=== PATIENT | female | born 1985 | race Caucasian/White ===

== ENCOUNTER 2017-08-05 15:44 | Inpatient (IN) | payer BC ==
[~2017-08-05] VITALS: Ht 157.5 cm; Wt 84.1 kg
[~2017-08-05 15:44] MED LIST: BIRTH CONTROL PILL; MOTRIN 600600 MG/TAB PO; NO HOME MEDICATIONS; NORCO 325 MG-51 TAB PO
[2017-09-26 21:43] VITALS: BP 100/57; PULSE 69; TEMP 97.8
[2017-09-26] MEDS ORDERED: PRENATAL MVI (21:49)
[2017-09-26 22:45] VITALS: BP 119/72; PULSE 73
[2017-09-26 23:00] VITALS: BP 129/62; PULSE 65
[2017-09-26 23:15] VITALS: BP 124/77; PULSE 76
[2017-09-26 23:18] LABS: BASO % 0.3 % (0.0-2.0); EOS % 0.4 % (0-4.0); GRAN # 7.2 (1.4-6.5); GRAN % 67.6 % (42.2-75.2); HEMATOCRIT 36.9 % (37.0-47.0); HEMOGLOBIN 12.9 g/dl (12.5-16.0); LYMPH # 2.5 (1.2-3.4); LYMPH % 23.6 % (20.0-51.0); MEAN CELL VOLUME 86 fl (80.0-100.0); MEAN CORPUSCULAR HEMOGLOBIN 30 pg (27.0-31.0); MEAN CORPUSCULAR HGB CONC 35 g/dl (33.0-37.0); MEAN PLATELET VOLUME 12.4 fl (7.4-10.4); MONO # 0.8 (0.1-0.6); MONO % 7.8 % (1.7-9.3); PLATELET COUNT 158 K/mm3 (130-400); RED BLOOD COUNT 4.27 M/mm3 (4.10-5.30); WHITE BLOOD COUNT 10.6 K/mm3 (4.8-10.8)
[2017-09-26 23:25] VITALS: BP 138/94; PULSE 91
[2017-09-26 23:45] VITALS: BP 107/58; PULSE 64
[2017-09-27] VITALS (24 sets, daily range): BP systolic 87–148; BP diastolic 51–79; PULSE 55–98; TEMP 97.4–98.6
[2017-09-28 06:56] LABS: HEMATOCRIT 33.5 % (37.0-47.0); HEMOGLOBIN 11.5 g/dl (12.5-16.0)
[2017-09-28 07:38] VITALS: BP 121/81; PULSE 72
[2017-09-28] MEDS ORDERED: IBU600 MG PO (09:18)
== END 2017-09-28 11:10 | disposition home or self-care (01) | DRG 775 ==
LOC: OB 09-26 21:35 → LDR 09-26 21:35 → OB 09-27 05:45 → LDR 09-27 12:30 → OB 09-28 11:10 → EDSTATUS 10-04 12:29 → LDRO 10-04 15:44
PROVIDERS: Obstetrics & Gynecology
PROC: 10E0XZZ Delivery of Products of Conception, External Approach (ICD-10-PCS; principal; 2017-09-27)
PROC: 0HQ9XZZ Repair Perineum Skin, External Approach (ICD-10-PCS; 2017-09-27)
DX: O70.0 First degree perineal laceration during delivery (principal); Z3A.39 39 weeks gestation of pregnancy; Z37.0 Single live birth
CPT/HCPCS: J2590; J7120

== ENCOUNTER 2021-01-13 07:04 | Inpatient (IN) | payer BC ==
[2021-01-13] VITALS (36 sets, daily range): BP systolic 90–1410; BP diastolic 50–90; PULSE 59–109; TEMP 97.8–98.7
[~2021-01-13] VITALS: Ht 157.5 cm; Wt 84.5 kg
[~2021-01-13 07:04] MED LIST changes: +IBU600 MG PO; +PRENATAL MVI
[2021-01-13 10:51] LABS: BASO % 0.4 % (0.0-2.0); EOS # 0.1 (0.0-0.7); EOS % 0.6 % (0-4.0); GRAN # 7.7 (1.4-6.5); GRAN % 72.7 % (42.2-75.2); HEMOGLOBIN 12.2 g/dl (12.5-16.0); LYMPH % 19.2 % (20.0-51.0); MEAN CELL VOLUME 86 fl (80.0-100.0); MEAN CORPUSCULAR HEMOGLOBIN 30 pg (27.0-31.0); MEAN CORPUSCULAR HGB CONC 35 g/dl (33.0-37.0); MEAN PLATELET VOLUME 12.5 fl (7.4-10.4); MONO # 0.7 (0.1-0.6); MONO % 6.5 % (1.7-9.3); PLATELET COUNT 170 K/mm3 (130-400); REDCELL DISTRIBUTION WIDTH-CV 12.8 % (11.5-14.5)
[2021-01-13 10:54] LABS: HEMATOCRIT 35.2 % (37.0-47.0)
--- NOTE | 2021-01-13 17:53 | NUR ---
0950 - Pt and spouse arrive to unit for scheduled induction of labor. Pt changes into gown, EFM explained and placed. Pt denies leaking of fluid, vaginal bleeding, reports good movement and occasional contractions. Vital signs taken, IV started, labs drawn, LR started per protocol. Consents discussed and signed, assessment complete. Pt positioned for comfort, denies further needs at this time. 1018 - Pitocin started per protocol. 1030 - SVE 70/-3. Dr. Montoya notified of pt admission and current status. 1220 - Dr. Montoya to pt bedside. SVE per physician 50/-3. AROM at this time, clear fluid noted. 1252 - Sarthak Walton to pt bedside for epidural placement. Pt repositioned sitting upright. Single shot given at 1258, pt tolerated well. Pt repositioned for comfort. 1342 - Zapien placed at this time. SVE 3-50/-3. Subtle late decelerations noted with contractions, pt repositioned RL with PB. 1440 - Late declerations noted following last 3 contractions. SVE 4/60/-3. Pt repositioned LL with PB. 1510 - Late decelerations noted with contrations. Pt repositioned sitting upright in fede position. 1616 - Variable and subtle late decelerations noted over last 10 minutes. SVE 6/100/-1. Pt repositioned WR. Dr. Montoya notified. 1627 - Subtle late decelerations agian noted. Pt repositioned WL. 1636 - Early declerations noted, pt reporting pressure with contractions. SVE AL/0. Pt repositioned SF for comfort. 1645 - Variable decelerations over last 2 contractions. Pt reporting increased pressure. SVE 10/100/0. Dr. Montoya notified. 1652 - Dr. Montoya to pt bedside. Pt repositioned for pushing, bed broken down. Robbie Lai RN of nursery and Mita Santiago, RN called to pt bedside for delivery. 1656 - Pt starts pushing with contractions. 165 - Female delivered via attended by Dr. Montoya. placed on mother's abdomen where dried and stimulated. Cord clamped by Dr. Montoya and cut by father. Care of transferred to Robbie Lai RN of nursery. 170 - Spontaneous delivery of placenta attended by Dr. Montoya. Per physician, perineum intact. Pericare provided, ice pack placed. Pt repositioned for comfort. Pitocin running per protocol. Pt denies further needs at this time.
--- NOTE | 2021-01-13 19:30 | NUR ---
Pt unable to lift and hold each leg off of bed for 5 seconds but wishing to move to room. Bleeding within normal limits and fundus down 1 from umbilicus. Pt positioned to sitting on edge of bed. Epidural catheter removed. Tip smooth, blue, and intact, patient tolerated well. Clean gown on. Mesh panties and peripad applied. Pt able to pivot to wheelchair and transferred to room 207 with belongings and spouse.
[2021-01-14 05:00] VITALS: BP 119/82; PULSE 77; TEMP 97.2
[2021-01-14 06:02] LABS: HEMATOCRIT 38.1 % (37.0-47.0); HEMOGLOBIN 12.7 g/dl (12.5-16.0)
[2021-01-14 07:25] VITALS: BP 113/69; PULSE 77; TEMP 97.9
--- NOTE | 2021-01-14 11:58 | NUR ---
Paving Supervisor congratulated patient and spouse and offered a prayer.
[2021-01-14 12:00] VITALS: BP 101/65; PULSE 59; TEMP 97.7
[2021-01-14 17:00] VITALS: BP 125/78; PULSE 76; TEMP 97.5
[2021-01-14 20:00] VITALS: BP 117/64; PULSE 69; TEMP 98.1
[2021-01-15 07:40] VITALS: BP 117/76; PULSE 71; TEMP 98.2
== END 2021-01-15 10:30 | disposition home or self-care (01) | DRG 807 ==
LOC: OB 07:04 → LDR 09:43 → OB 20:26
PROVIDERS: ADMIT Obstetrics & Gynecology
PROC: 10E0XZZ Delivery of Products of Conception, External Approach (ICD-10-PCS; principal; 2021-01-13)
PROC: 10907ZC Drainage of Amniotic Fluid, Therapeutic from Products of Conception, Via Natural or Artificial Opening (ICD-10-PCS; 2021-01-13)
PROC: 3E033VJ Introduction of Other Hormone into Peripheral Vein, Percutaneous Approach (ICD-10-PCS; 2021-01-13)
DX: O80 Encounter for full-term uncomplicated delivery (principal); Z37.0 Single live birth; Z3A.39 39 weeks gestation of pregnancy
CPT/HCPCS: J2590; J2795; J7120

== ENCOUNTER → 2021-01-30 | Outpatient (CLI) | payer BC | LOC: ZCOL.LAB 01-10 16:28 | DX: Z20.822 Contact with and (suspected) exposure to COVID-19 (principal) ==